=== PATIENT | male | born 1970 | race Caucasian/White ===

== ENCOUNTER → 2017-04-23 11:32 | Outpatient (CLI) | payer BC, SELFPAY ==
[2017-04-23 15:01] LABS: ALB/GLOB Ratio 1.1 RATIO (0.9-2.4); AST(SGOT) 25 U/L (15-37); Alanine Aminotransfer ALT/SGPT 50 U/L (16-61); Albumin, Serum 3.9 g/dL (3.2-5.0); Alkaline Phosphatase 89 U/L (45-117); Anion Gap 8 (5-15); BUN 12 mg/dL (7-18); Calcium,Total 8.7 mg/dL (8.5-10.1); Chloride 104 mmol/L (98-107); Cholesterol 225 mg/dL (200); EST Glomerular Filtration Rate 86 mL/min (>60); Est Glom Filt Rate - Afr Amer 104 mL/min (>60); Globulin 3.4 g/dL (2.2-4.2); Glucose 81 mg/dL (74-106); High Density Lipoprotein 47 mg/dL; Potassium 4.1 mmol/L (3.5-5.1); Protein, Total 7.3 g/dL (6.4-8.2); Sodium Level 140 mmol/L (136-145); Triglycerides 106 mg/dL; Very Low Density Lipoprotein 21 mg/dL (5-40)
== END ==
PROVIDERS: Family Provider Family Medicine; PCP Family Medicine; Visit Provider Family Medicine
DX: E34.9 Endocrine disorder, unspecified (principal)
CPT/HCPCS: 36415; 80053; 80061; 84403

== ENCOUNTER → 2017-05-02 15:24 | Outpatient (CLI) | payer OTHER, SELFPAY ==
--- NOTE | 2017-05-02 15:39 | EKG12_ITS ---
Test Reason : PREOP Blood Pressure : / mmHG Vent. Rate : 056 BPM Atrial Rate : 056 BPM P-R Int : 162 ms QRS Dur : 104 ms QT Int : 390 ms P-R-T Axes : 043 055 035 degrees QTc Int : 376 ms Sinus bradycardia Otherwise normal ECG Confirmed by EFREN SOLORZANO, DANIAL ([id number]), online editor SWEETIE ERICKSON ([id number]) on 05/03/2017 2:21:27 PM Referred By: Denton Trivedi Confirmed By:DANIAL SCHWARTZ MD
[2017-05-02 15:49] LABS: Hematocrit 43.3 % (40-54); Hemoglobin 15.1 g/dl (13.0-16.5); Mean Corp Hgb Conc 34.9 g/gl (32-36); Mean Corpuscular Hgb 28.8 pg (27.0-32.0); Mean Corpuscular Volume 82.5 fL (80-94); Mean Platelet Vol. 9.8 fl (6.2-12.0); Platelet Count 353 K/mm3 (150-450); RBC Distribution Width CV 12.8 % (11.6-14.6); RBC Distribution Width SD 38.7 fl (35.1-43.9); Red Blood Count 5.25 M/mm3 (4.6-6.2); White Blood Count 9.2 K/mm3 (4.4-11.0)
[2017-05-02 15:50] LABS: Scan Indicated on CBC? Y/N NO
[2017-05-02 16:10] LABS: Anion Gap 5 (5-15); BUN 15 mg/dL (7-18); BUN/Creat Ratio 14.3 RATIO (10-20); Calcium,Total 8.6 mg/dL (8.5-10.1); Chloride 106 mmol/L (98-107); Creatinine, Serum 1.05 mg/dL (0.70-1.30); EST Glomerular Filtration Rate 81 mL/min (>60); Est Glom Filt Rate - Afr Amer 98 mL/min (>60); Glucose 72 mg/dL (74-106); Potassium 4.1 mmol/L (3.5-5.1); Sodium Level 139 mmol/L (136-145)
== END ==
PROVIDERS: Family Provider Family Medicine; PCP Family Medicine; Visit Provider Physician Assistant
DX: Z01.818 Encounter for other preprocedural examination (principal)
CPT/HCPCS: 36415; 80048; 85027; 93005

== ENCOUNTER → 2018-06-16 15:21 | Outpatient (CLI) | payer BC, SELFPAY ==
[2018-06-16 17:56] LABS: Hematocrit 47.5 % (40-54); Mean Corp Hgb Conc 33.7 g/gl (32-36); Mean Corpuscular Hgb 27.6 pg (27.0-32.0); Mean Corpuscular Volume 81.9 fL (80-94); Mean Platelet Vol. 10.1 fl (6.2-12.0); Platelet Count 370 K/mm3 (150-450); RBC Distribution Width CV 13.8 % (11.6-14.6); RBC Distribution Width SD 40.9 fl (35.1-43.9); Scan Indicated on CBC? Y/N NO; White Blood Count 9.7 K/mm3 (4.4-11.0)
[2018-06-16 18:28] LABS: ALB/GLOB Ratio 1.3 RATIO (0.9-2.4); AST(SGOT) 24 U/L (15-37); Alanine Aminotransfer ALT/SGPT 54 U/L (16-61); Albumin, Serum 3.9 g/dL (3.2-5.0); Alkaline Phosphatase 95 U/L (45-117); Anion Gap 10 (5-15); BUN 18 mg/dL (7-18); BUN/Creat Ratio 14.5 RATIO (10-20); Calcium,Total 9.5 mg/dL (8.5-10.1); Chloride 107 mmol/L (98-107); Creatinine, Serum 1.24 mg/dL (0.70-1.30); EST Glomerular Filtration Rate 66 mL/min (>60); Est Glom Filt Rate - Afr Amer 80 mL/min (>60); Globulin 3.1 g/dL (2.2-4.2); Glucose 78 mg/dL (74-106); Potassium 5.2 mmol/L (3.5-5.1); Sodium Level 141 mmol/L (136-145)
[2018-06-16 19:45] LABS: Vitamin D,25 Hydroxy 15.4 ng/mL (29.95-100.01)
== END ==
PROVIDERS: Family Provider Family Medicine; PCP Family Medicine; Referring Provider Family Medicine; Visit Provider Family Medicine
DX: E55.9 Vitamin D deficiency, unspecified (principal); E34.9 Endocrine disorder, unspecified
CPT/HCPCS: 36415; 80053; 82306; 84153; 84403; 85027

== ENCOUNTER → 2018-12-15 16:00 | Outpatient (CLI) | payer BC, SELFPAY ==
[2018-12-15 17:28] LABS: Hematocrit 46.9 % (40-54); Hemoglobin 15.7 g/dL (13.0-16.5); Mean Corp Hgb Conc 33.5 g/dL (32-36); Mean Corpuscular Hgb 28.3 pg (27.0-32.0); Mean Corpuscular Volume 84.5 fL (80-94); Mean Platelet Vol. 9.6 fl (6.2-12.0); Platelet Count 361 K/mm3 (150-450); RBC Distribution Width CV 12.1 % (11.6-14.6); Red Blood Count 5.55 M/mm3 (4.6-6.2); White Blood Count 9.9 K/mm3 (4.4-11.0)
[2018-12-15 17:55] LABS: Vitamin D,25 Hydroxy 38.1 ng/mL (29.95-100.01)
[2018-12-15 17:56] LABS: AST(SGOT) 18 U/L (15-37); Alanine Aminotransfer ALT/SGPT 42 U/L (16-61); Albumin, Serum 3.8 g/dL (3.2-5.0); Alkaline Phosphatase 86 U/L (45-117); Anion Gap 7 (5-15); BUN 13 mg/dL (7-18); BUN/Creat Ratio 11.9 RATIO (10-20); Calcium,Total 9.1 mg/dL (8.5-10.1); Chloride 104 mmol/L (98-107); Cholesterol 256 mg/dL (200); Creatinine, Serum 1.09 mg/dL (0.70-1.30); EST Glomerular Filtration Rate 77 mL/min (>60); Est Glom Filt Rate - Afr Amer 93 mL/min (>60); Globulin 3.7 g/dL (2.2-4.2); Glucose 75 mg/dL (74-106); High Density Lipoprotein 40 mg/dL; PSA,Total - Annual Screen 0.85 ng/mL (0.00-4.00); Potassium 4.1 mmol/L (3.5-5.1); Protein, Total 7.5 g/dL (6.4-8.2); Sodium Level 140 mmol/L (136-145); Triglycerides 194 mg/dL; Very Low Density Lipoprotein 39 mg/dL (5-40)
== END ==
PROVIDERS: Family Provider Family Medicine; PCP Family Medicine; Visit Provider Family Medicine
DX: R79.89 Other specified abnormal findings of blood chemistry (principal); E34.9 Endocrine disorder, unspecified
CPT/HCPCS: 36415; 80053; 80061; 82306; 84153; 85027; G0103

== ENCOUNTER 2020-05-20 07:00 | Outpatient (RCR) | payer OTHER, BC, SELFPAY ==
--- NOTE | 2020-03-21 08:42 | HP.PTEVAL_ITS ---
Patient's Visit Information ROSA ANDREW is a 49 year old M referred to Physical Therapy by Out of Town Doctor with a diagnosis of R shoulder. Date of Evaluation: 03/21/20 Physical Therapist: Anastacia Donovan DPT - Visit Plan Frequency: 3-5x/week Duration: 6 Weeks Plan: work conditioning: improve R shoulder strength and ROM in order to return to work- pulling, lifting, pushing, above head movement (50-100lbs). IE: first week 3x/week 90minutes, second week 3x/week, third/fourth week 4x/week, fifth/sixth week 5x/week- 2 hour sessions for work conditioning. FCE at end - Subjective Pt presents with R shoulder injury 09/16/15 started at work-20ft piece of pipe and mauvered through hallway and boss tried to help lift pipe and arm ER and felt a pop and went to the [employer]. Had MRI. 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 R hand dominate. pain: little bit, weather does affect it 07/21. worst: reaching behind back, abd/ext or move too fast any direction 09/20. better: 2-04/20, in sling position with pillow under arm. sleep: cannot lay on R side too much, is a side sleeper/stomach, sometimes will wake up. at night. location and description of pain: sharp in the anterior shoulder. radiating//numbness/tingling: can go back down arm to eblow but not past elbow, does have some tingling in R hand and pt reports it gets colder compared to other hand. blurred vision, headache/dizzin es: denies. neck pain: normally has it - goes to chiropractor once a week and that helps it (posterior neck). meds: tylenol. 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 last PT in 01/30- trying to keep ROM, not as much strengthenig, is still doing exerices currently- [facility]- in [place], [place] (has is own place)- [facility]. Pt would like to get back to workout routine, and working,l rocky to [employer] and [employer], lives with . - Objective Posture: FH, RS, cannot maintian with cues. palption: no tenderness throughout the shoulder. Gait: decreased arm swing and trunk rotation- carrying water bottle in left hand. ROM: finger dexterity/wrist: WFL, elbow flex 135, ext WFL, shoulder in supine: flex 170 (in seated 160), abd 80 (80 degrees in sitting), ER 19. 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 Goal Time Frame: 4-6 Weeks Goal 3:: Patient will demonstrate ability to lift 50lb box floor to waist x20 without pain in order promote work related tasks. Goal Time Frame: 4-6 Weeks Goal 4:: Patient will demonstrate ability to lift 50lb box waist to overhead x20 without pain in order promote work related tasks. Goal Time Frame: 4-6 Weeks - Rehabilitation Potential Physical Therapy Diagnosis: Pt presents with decreased ROM, strength, poor posture, and decreased ability to perform work related activities. Rehabilitation Potential: Good - Anticipated Interventions Patient/Client Instruction: Educate patient on: Plan of Care, Benefits of Fitness Program For the Purpose of:: To improve muscle performance and motor function Therapeutic Exercise to Include: Strength training, Power training, Endurance training, Coordination, Body mechanics, Postural training, Flexibilty training, Passive ROM, Active ROM, Dynamic Lumbar Stabilization, Scapular Strength/Stabilization For the Purpose of:: To increase tolerance to activity/condition/position Functional Training to Include: Functional work training For the Purpose of:: To improve muscle performance and motor function, To increase tolerance to activity/condition/position Cryotherapy (ice pack, ice massage): Yes Thermo therapy (hot pack): Yes Ultrasound (thermal/non thermal): No Thank you for the opportunity to evaluate your patient. For Medicare and Medicare HMO plans, please review the plan of care and approve it. It will need to be FAXED BACK to us at [phone] for Medicare purposes. For Medicare only, by signing this I certify the plan of care. Please let me know if there are questions or concerns regarding this plan of care. Physician Signature: Date:
--- NOTE | 2020-05-05 11:55 | HP.PTREVAL_ITS ---
Out of Town Doctor, It has been my pleasure to treat ROSA ANDREW over the last 20 visits for R shoulder. Please see the progress note below for an update on the physical therapy plan of care! Subjective: Patient reports that he is a lot better than when he started work conditioning. He has some concerns about going back to the job he was doing before. He was lifting boxes overhead up to 75#. 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 Objective/Function: Posture: good throughout treatment session. palption: no tenderness throughout the shoulder. Gait: good arm swing and trunk rotation- no deviation noted ROM: finger dexterity/wrist: WFL, elbow: WFL, shoulder in standing: flex 175 degrees, abd 100 degrees, ER 30. IR: to belt line strength: elbow: 4+/5 shoulder: flex 4+/5, abd 5/5 ext 5/5, IR 4+/5, ER 4/5. Box floor to waist: #50 x 20 without stopping, Box waist to overhead- 50# x 1 with sharp pain and SBA- #35 x2 Indep. Plan Plan: work conditioning: improve R shoulder strength and ROM in order to return to work- pulling, lifting, pushing, above head movement (50-100lbs). IE: first week 3x/week 90 minutes, second week 3x/week, third/fourth week 4x/week, fifth/sixth week 5x/week- 2 hour sessions for work conditioning. FCE at end. 05/05/2020: finish work conditioning and FCE Goals Goal 1:: Patient will perform I HEP and progression Goal Time Frame: 4-6 Weeks Goal Progress: Goal Met Goal 2:: Patient will maintain proper posture for an entire treatment session in order to improve body mechanics during functional activities. Goal Time Frame: 4-6 Weeks Goal Progress: Goal Met Goal 3:: Patient will demonstrate ability to lift 50lb box floor to waist x20 without pain in order promote work related tasks. Goal Time Frame: 4-6 Weeks Goal Progress: Goal Met Goal 4:: Patient will demonstrate ability to lift 50lb box waist to overhead x20 without pain in order promote work related tasks. Goal Time Frame: 4-6 Weeks Goal Progress: Progressing Anticipated Interventions Patient/Client Instruction: Educate patient on: Plan of Care, Benefits of Fitness Program For the Purpose of:: To improve muscle performance and motor function Therapeutic Exercise to Include: Strength training, Power training, Endurance training, Coordination, Body mechanics, Postural training, Flexibilty training, Passive ROM, Active ROM, Dynamic Lumbar Stabilization, Scapular Strength/Stabilization For the Purpose of:: To increase tolerance to activity/condition/position Functional Training to Include: Functional work training For the Purpose of:: To improve muscle performance and motor function, To increase tolerance to activity/condition/position Cryotherapy (ice pack, ice massage): Yes Thermo therapy (hot pack): Yes Ultrasound (thermal/non thermal): No Please do not hesitate to contact me at [phone] by phone or if you have questions or concerns regarding this new plan of care! Sincerely, Anastacia Donovan DPT
--- NOTE | 2020-05-20 09:02 | HP.PTDCSUM ---
It has been my pleasure to treat ROSA ANDREW referred by Out of Town Doctor, with the diagnosis of R shoulder for a total of 22 visit(s). Discharge Date: Please see the following information for a summary of their discharge status. Subjective: States FCE yesterday. Wants to use last therapy day to help transfer Kinesis ex's to indep on gym side. Also got to meet up with Randy and he was able to show him how to progress what he is currently doing. Pt states he's still not able to get the same sweat on his own that he gets in PT. R SH Pain Intensity (Out of 10): 0 % Improvement: 70 Objective/Function: Pt wanted one last session of work conditioning while still approved (ends this saturday). States these appts still feel great and more effective than working out on his own. Educated pt on how to advance himself and how to transition Kinesis exs to gym area. Goal 1:: Patient will perform I HEP and progression Goal Progress: Goal Met Goal 2:: Patient will maintain proper posture for an entire treatment session in order to improve body mechanics during functional activities. Goal Progress: Goal Met Goal 3:: Patient will demonstrate ability to lift 50lb box floor to waist x20 without pain in order promote work related tasks. Goal Progress: Goal Met Goal 4:: Patient will demonstrate ability to lift 50lb box waist to overhead x20 without pain in order promote work related tasks. Goal Progress: Progressing Plan: D/c from rehab at this time - end of C9 and had FCE yesterday. If there are questions or concerns regarding this patient's physical therapy, please feel free to call me at [phone]. Thank you for the referral of this patient. Sincerely, SIERRA MurrayT
--- NOTE | 2020-05-25 12:25 | HP.OTFCE_ITS ---
Floor (Occasional 1-33% of Day): 65# Floor (Frequent 34-66% of Day): 32# Floor (Constant 67-100% of Day): 13# Floor PDL: Medium Knee (Occasional 1-33% of Day): 65# Knee (Frequent 34-66% of Day): 32# Knee (Constant 67-100% of Day): 13# Knee PDL: Medium Waist (Occasional 1-33% of Day): 65# Waist (Frequent 34-66% of Day): 32# Waist (Constant 67-100% of Day): 13# Waist PDL: Medium Shoulder (Occasional 1-33% of Day): 40# Shoulder (Frequent 34-66% of Day): 20# Shoulder (Constant 67-100% of Day): 8# Shoulder PDL: Light-Medium Overhead PDL: No Ability Bending: Frequent Ability (34-66% of day) Squatting: Frequent Ability (34-66% of day) Kneeling: Occasional Ability (1-33% of day) Comments: with external support Reaching out: Frequent Ability (34-66% of day) Reaching up: Occasional Ability (1-33% of day) Sitting: Frequent Ability (34-66% of day) Walking: Frequent Ability (34-66% of day) Standing: Frequent Ability (34-66% of day) Duration Sedentary Sedentary Light Light Light Medium Medium Medium Heavy Very Heavy Heavy Occasional (0-33% of day) Frequent (34-66% of day) Constant (67-100% of day) 10 # Negligible Negligible 15 # 8 # Negligible 20 # 10# Negli. 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 pt went to [facility] it was found pt had a labrum tear and pt underwent sx, then PT. during PT pt tore RT and Dr. Singletary repaired that for pt. went through PT again for RC repair and tore it again. Dr. Singletary was unable to repair- pt was referred to a [facility] shoulder specialist ( hector) pt did undergo a scraping but this surgeon was unable to help. pt was seen by Dr. Torres but was referred to Dr. Mock and pt had a reverse shoulder replacement- pt is on currently on a 25# lift restriction. pt uses smokeless tobacco chews 1/2 can a day. Per nursing pt can progress with strengthening as tolerated and per nursing has no wt. restriction. Diagnoses: High cholesteral Symptoms: pt states he does get right shoulder sharp pain at times. can not make fast movements (as in reaching for a falling objects) or pulling a journeyman carpenter. weakness Pain: right shoulder 06/20 pt states he did take some tylonal Work History: pt states he has worked at [employer] for less than a year. 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 Behavioral: Pt was cooperative throughout assessment ADLS: Pt lives in a one-story home with one entry step- lives with . states he has walk in shower and tub shower combo- pt does not use ad. eq. for bathing or dressing- pt states does assist with washing his back. Pt does all the yard care, has riding journeyman carpenter. pt drives ind. pt is ind. with cooking and cleaning. ROM: ROM: finger dexterity/wrist: WFL, elbow: WFL, shoulder in standing: flex 175 degrees, abd 100 degrees, ER 30. IR: to belt line. ROM is WFL Strength: strength: elbow: 4+/5 shoulder: flex 4+/5, abd 5/5 ext 5/5, IR 4+/5, ER 4/5. left UE 5/5. LE MMT 5/5. pt demo functional strength Right Chief Librarian Work With Blind Strength Average: 81.66 Right Chief Librarian Work With Blind Strength Percentile: 5.7% Left Chief Librarian Work With Blind Strength Average: 140.00 Left Chief Librarian Work With Blind Strength Percentile: 95% Right Lateral Pinch Average: 13.33 Right Lateral Pinch Percentile: >10% Left Lateral Pinch Average: 19.33 Left Lateral Pinch Percentile: 25% Right Tripod Pinch Average: 14.00 Right Tripod Pinch Percentile: 10# Left Tripod Pinch Average: 18.66 Left Tripod Pinch Percentile: 50% Sensation: deneis Fine Motor: deneis Balance: pt demo Normal balance -no loss of balance noted during assessment Bending: pt completed 3x 10x and 10 x rapidly. pt can bend forward on a frequent ability. Squatting: pt completed 3x 10x 10x rapidly pt c/o bilateral knee pian 06/20. pt can squat on a frequent ability Kneeling: pt demo the ability to kneel three times pt completed kneeling 10x with exteranl support. pt unable to kneel 10x rapidly due to bilateral knee pain 06/20 . pt can kneel on an occastional ability Reaching out/up: pt demo the ability to reach out three times, ten times and ten times rapidly. pt can reach out on a frequent ability. pt demo the ability to reach up three times, ten times and 3x rapidly, pt can rech up on an occasional ability . Walking: pt demo the ability to ambulate 15 min - pt can ambulate on a frequent ability Standing: pt demo the ability to stand for 15 min with no expressed or apparent discomfort pt can stand on a frequent ability Sitting: pt demo the ability to sit for 40 min with no expressed or apparent discomfort. Climbing Stairs: pt ascended and descended ten steps with a reciprocal gait pattern no use of rails with good ability Floor Lift: Pt demo the ability to lift 65# maximally from this level with good lifting mechanics. Knee Lift: Pt demo the ability to lift 65# maximally from this level with good lifting mechanics. Waist Lift: Pt demo the ability to lift 65# maximally from this level with good lifting mechanics. Shoulder Lift: pt demo the ability to lift 40# maximally from this level with good lifting mechanics. Overhead Lift: unable Carrying: pt demo the ability to carry 40# for 40 feet with good ability. Comments: pt demo good lifting mechanics during lift tasks.
--- NOTE | 2020-05-25 12:25 | HP.OTFCE.D ---
FCE D/C Summary - Discharge ROSA ANDREW was seen for a one time visit for an FCE on 05/19/20 and is discharged.
== END 2020-05-20 10:24 | disposition home or self-care (01) ==
LOC: PT 07:00
PROVIDERS: PCP Family Medicine
DX: S43.401D Unspecified sprain of right shoulder joint, subsequent encounter (principal); S43.431D Superior glenoid labrum lesion of right shoulder, subsequent encounter
CPT/HCPCS: 97110; 97162; 97164; 97750

== ENCOUNTER → 2020-11-03 16:54 | Outpatient (CLI) | payer BC, SELFPAY ==
[2020-11-03 18:00] LABS: ALB/GLOB Ratio 1.1 RATIO (0.9-2.4); AST(SGOT) 39 U/L (15-37); Alanine Aminotransfer ALT/SGPT 51 U/L (16-61); Albumin, Serum 3.9 g/dL (3.2-5.0); Alkaline Phosphatase 102 U/L (45-117); Anion Gap 5 (5-15); BUN 12 mg/dL (7-18); Calcium,Total 9.2 mg/dL (8.5-10.1); Chloride 105 mmol/L (98-107); Cholesterol 166 mg/dL (200); Creatinine, Serum 0.86 mg/dL (0.70-1.30); EST Glomerular Filtration Rate 101 mL/min (>60); Est Glom Filt Rate - Afr Amer 122 mL/min (>60); Globulin 3.5 g/dL (2.2-4.2); Glucose 71 mg/dL (74-106); High Density Lipoprotein 47 mg/dL; PSA,Total - Annual Screen 0.92 ng/mL (0.00-4.00); Potassium 3.7 mmol/L (3.5-5.1); Protein, Total 7.4 g/dL (6.4-8.2); Sodium Level 136 mmol/L (136-145); Triglycerides 100 mg/dL; Very Low Density Lipoprotein 20 mg/dL (5-40)
[2020-11-03 18:17] LABS: Vitamin D,25 Hydroxy 54.7 ng/mL
== END ==
PROVIDERS: PCP Family Medicine; Referring Provider Family Medicine; Visit Provider Family Medicine
DX: E78.5 Hyperlipidemia, unspecified (principal); E55.9 Vitamin D deficiency, unspecified; Z12.5 Encounter for screening for malignant neoplasm of prostate
CPT/HCPCS: 36415; 80053; 80061; 82306; 84153; G0103

== ENCOUNTER 2020-11-25 10:16 | Emergency (ER) | payer OTHER, BC, SELFPAY ==
[2020-11-25 10:17] VITALS: PULSE 61; RESP 20; TEMP 36.6; O2SAT 98; BMI 40.4
--- NOTE | 2020-11-25 11:09 | RAD_ITS ---
STUDY: X-RAY - RIGHT FEMUR REASON FOR STUDY: Male, 50 years old. injury TECHNIQUE: 4 view(s) of the femur. COMPARISON: None. FINDINGS: Normal visualized femur. Normal visualized soft tissue structure. RAD/Femur Min 2 Views IMPRESSION: Normal x-ray examination of the right femur. Electronically Signed: Philip Humphreys MD at 12:43 EDT Tel , Service support ,
--- NOTE | 2020-11-25 11:09 | RAD_ITS ---
STUDY: X-RAY - RIGHT TIBIA AND FIBULA REASON FOR EXAM: Male, 50 years old. Injury TECHNIQUE: 3 view(s) of the tibia and fibula were obtained. COMPARISON: None. FINDINGS: There is no evidence of fracture or dislocation. There are no significant degenerative changes. There are no radiodense foreign bodies. RAD/Tibia & Fibula 2 Views IMPRESSION: No fracture or dislocation. Electronically Signed: Philip Humphreys MD at 12:46 EDT Tel , Service support ,
--- NOTE | 2020-11-25 11:16 | ED.VIS.LOWEX ---
HPI History of Present Illness Chief Complaint: Lower Extremity Injury Informant: patient and EMS Occured/Mechanism Mechanism/Context: Yes blunt trauma and Yes work related Comment: Large PVC pole hit medial right knee with force Onset/Context/Timing Onset: Today (Just prior to arrival) Context: Sudden Onset Timing: Continuous Quality of Pain: Aching Location: RLE Current Severity: Mild Maximum Severity: Severe Worsened by: Movement or trying to bear weight Relieved by: Fentanyl given by EMS Associated Symptoms Associated Symptoms: Positive for Parasthesia (Developed gradually during transport after splinting by EMS, unable to feel anything below the knee); Negative for Weakness and Loss of Funtion Narrative Narrative: Patient states he was at work, he was helping to put together a feed hopper when they backed to [employer]ts away from each other involved in the construction, and suddenly the Hopper blew open, and he was struck by a portion of it in the right lower leg/knee. He states when he tried to walk it felt like it buckled and he was unable, and he was having severe pain. EMS splinted him. He states he had good sensation prior to that, and in route during the ambulance ride, his right lower leg went numb from the knee down. [facility] Medical History Arthropathy of left knee Hyperlipidemia Home Medications atorvastatin 20 mg PO DAILY 11/25/20 [History Last Taken Unknown] Allergy/AdvReac Type Severity Reaction Status Date / Time No Known Allergies Allergy Verified 11/25/20 10:22 Social History Smoking Status: Never smoker ROS ROS ED Constitutional Constitutional ED: Denies chills or fever(s) Musculoskeletal Musculoskeletal: Reports extremity pain; Denies neck pain Integumentary Denies Abrasions, rash or wounds Neurologic Neurologic: Reports numbness; Denies weakness EXAM Physical Exam Const Vital Signs: 11/25/20 10:17 11/25/20 11:35 11/25/20 13:00 Temperature 97.9 F Temperature Source Oral Pulse Rate 61 60 65 Respiratory Rate 20 H Blood Pressure 132/112 H Blood Pressure Mean 118 Pulse Ox 98 96 Oxygen Delivery Method Room Air Room Air Positive well nourished and well developed General Appearance ED: well developed and NAD Neck full ROM and supple Back/Spine normal ROM and normal to inspection Extremity normal to inspection Extremity Narrative: No deformities of the right lower extremity. Tender throughout the distal medial right thigh, mostly at the medial aspect of the right knee diffusely, and the proximal right tibia. Skin intact, there is barely a sign of erythema where the patient states he feels like it struck him. All compartments are soft and nondistended. Very limited range of motion of the knee he is holding in about 15 degrees of flexion, due to pain. Bounding 2+/4 right dorsalis pedis pulse and brisk cap refill distal toes. Patient has no hip pain, I am able to range him a little without pain, but limited exam due to pain in the right knee. Neuro oriented x3 and no focal motor deficits Neuro Narrative: Able to wiggle right toes and foot. Sensation: patient able to feel pressure only with squeezing his toes firmly. No sensation to pinpoint. Sensorium / Orientation: alert Psych mental status grossly normal and thought process normal Skin no wounds Rashes: no rashes MDM MDM MDM Narrative Medical decision making narrative: The patient's right lower extremity was splinted, and his pants were cut and tucked beneath him fairly tightly, so when I loosen these and collapsed the splint he was in, given that he had great perfusion distally, on reevaluation his numbness totally resolved gradually, likely due to a neuropraxia from his pants being wrapped around his thigh very tightly. After reviewing two view x-ray of the right femur and two view x-ray of the tib-fib and personally interpreting them as negative, I reevaluated the patient, knowing I could manipulate his knee better without manipulating a fracture. He does have good range of motion although limited at flexion, he is able to extend fully and the mechanism is intact. His ligaments are intact, stable with minimal discomfort with stressing them, and very short endpoints including ACL and PCL. Given this, I do not think he needs knee immobilizer, he is not able to walk on it due to pain. He is given Rob wrap, crutches, and outpatient follow-up with [facility] for now, as I see no reason for him to see orthopedics at this time Radiography Diagnostic Testing: Clinical Impression(s) from Imaging Studies Femur X-Ray 11/25/20 11:09 IMPRESSION: Normal x-ray examination of the right femur. Electronically Signed: Philip Humphreys MD at 12:43 EDT Tel , Service support , Tibia/Fibula X-Ray 11/25/20 11:09 IMPRESSION: No fracture or dislocation. Electronically Signed: Philip Humphreys MD at 12:46 EDT Tel , Service support , Discharge Plan Triage Chief Complaint: Lower Extremity Injury ED Provider: Gerhard Rosario Dx/Rx/DC Orders Clinical Impression: Contusion of knee, right Instructions: ED Contusion, Lower Extremity Prescriptions: No Action atorvastatin 20 mg tablet 20 mg PO DAILY RF: 0 Stand Alone Forms: Work Status Form Primary Care Provider: Allen Pepe Referrals: [facility] [GROUP OF PHYSICIANS] - 3-5 Days Allen Pepe MD [Primary Care Provider] - Disposition Disposition: Home, Self Care
[2020-11-25 11:35] VITALS: BP 132/112; PULSE 60; O2SAT 96
[2020-11-25 13:00] VITALS: PULSE 65
[2020-11-25] MEDS: HYDROcodone Bitartrate/Apap 5/325 Tablet PO (13:38)
[2020-11-25 13:40] VITALS: BP 160/97; PULSE 66; RESP 16; O2SAT 99
== END 2020-11-25 13:55 | disposition home or self-care (01) ==
PROVIDERS: Emergency Provider Emergency Medicine; PCP Family Medicine
DX: S80.01XA Contusion of right knee, initial encounter (principal); W22.8XXA Striking against or struck by other objects, initial encounter; Y93.89 Activity, other specified; Y92.9 Unspecified place or not applicable; Y99.0 Civilian activity done for income or pay
CPT/HCPCS: 73552; 73590; 99285

== ENCOUNTER → 2020-12-23 16:02 | Outpatient (CLI) | payer OTHER, BC, SELFPAY ==
--- NOTE | 2020-12-23 16:25 | MRI_ITS ---
STUDY: MRI RIGHT KNEE REASON FOR EXAM: Male, 50 years old. Knee injury, knee pain. TECHNIQUE: Standardized fat and water weighted pulse sequences were obtained in all 3 orthogonal planes. COMPARISON: None. FINDINGS: Normal medial meniscus. There is diffuse, less than 50% thickness articular cartilage loss of the medial femorotibial compartment. Normal medial femoral condyle and tibial plateau. Normal medial collateral ligamentous complex (MCL). Normal distal semimembranosus, gracilis and semitendinosus tendons. Normal lateral meniscus. There is diffuse, less than 50% thickness articular cartilage loss of the lateral femorotibial compartment. Normal lateral femoral condyle and tibial plateau. Normal proximal tibiofibular articulation. Normal lateral collateral (fibular) ligament. Normal popliteus tendon. Normal biceps femoris tendon. Normal anterior cruciate ligament (ACL). Normal posterior cruciate ligament (PCL). Shallow trochlear groove with lateral subluxation of patella and edema superolateral Hoffa''s fat pad consistent with patellofemoral maltracking. 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 Normal medial and lateral patellar retinaculum. Normal quadriceps tendon. Normal patellar tendon. Normal Hoffa''s fat pad. There is a small volume joint effusion. The soft tissues are unremarkable. The otherwise visualized osseous structures are unremarkable. MRI/Lower Ext Joint Only (Routine) IMPRESSION: Mild tricompartmental arthrosis. Electronically Signed: Neftali Villa MD at 8:39 EST Tel , Service support ,
== END ==
PROVIDERS: PCP Family Medicine; Visit Provider Physician Assistant Surgical
DX: S80.01XA Contusion of right knee, initial encounter (principal); X58.XXXA Exposure to other specified factors, initial encounter; M17.11 Unilateral primary osteoarthritis, right knee
CPT/HCPCS: 73721

== ENCOUNTER 2021-05-16 15:23 | Outpatient (CLI) | payer BC, SELFPAY | END 2021-05-16 23:59 | disposition home or self-care (01) | LOC: LABSPEC 15:27 | PROVIDERS: PCP Family Medicine; Referring Provider Family Medicine; Visit Provider Family Medicine | DX: B34.9 Viral infection, unspecified (principal); Z20.822 Contact with and (suspected) exposure to COVID-19 | CPT/HCPCS: 87635; U0003; U0005 ==

== ENCOUNTER → 2023-03-20 | Outpatient (CLI) | payer BC, SELFPAY ==
[2023-03-20 17:31] LABS: Hematocrit 42.3 % (40-54); Hemoglobin 13.7 g/dL (13.0-16.5); Mean Corp Hgb Conc 32.4 g/dL (32-36); Mean Corpuscular Hgb 27.4 pg (27.0-32.0); Mean Corpuscular Volume 84.6 fL (80-94); Mean Platelet Vol. 9.8 fl (6.2-12.0); Platelet Count 318 K/mm3 (150-450); RBC Distribution Width CV 13.2 % (11.6-14.6); RBC Distribution Width SD 40.4 fl (35.1-43.9)
[2023-03-20 17:54] LABS: Vitamin D,25 Hydroxy 31.6 ng/mL
[2023-03-20 17:58] LABS: Hemoglobin A1c 4.9 % (3.8-5.6)
[2023-03-20 18:10] LABS: AST(SGOT) 30 U/L (15-37); Alanine Aminotransfer ALT/SGPT 46 U/L (16-61); Albumin, Serum 3.7 g/dL (3.2-5.0); Alkaline Phosphatase 112 U/L (45-117); Anion Gap 2 (5-15); BUN 19 mg/dL (7-18); BUN/Creat Ratio 15.1 RATIO (10-20); Bilirubin, Direct 0.13 mg/dL (0.00-0.30); Calcium,Total 8.7 mg/dL (8.5-10.1); Chloride 108 mmol/L (98-107); Cholesterol 176 mg/dL (200); Creatinine, Serum 1.26 mg/dL (0.70-1.30); EST Glomerular Filtration Rate 64 mL/min (>60); Est Glom Filt Rate - Afr Amer 77 mL/min (>60); Globulin 3.2 g/dL (2.2-4.2); Glucose 95 mg/dL (74-106); High Density Lipoprotein 35 mg/dL; PSA,Total - Annual Screen 0.97 ng/mL (0.00-4.00); Potassium 3.9 mmol/L (3.5-5.1); Protein, Total 6.9 g/dL (6.4-8.2); Sodium Level 136 mmol/L (136-145); Triglycerides 90 mg/dL; Very Low Density Lipoprotein 18 mg/dL (5-40)
== END | disposition home or self-care (01) ==
LOC: MFPLAB 16:53
PROVIDERS: PCP Family Medicine; Visit Provider Family Medicine
DX: Z13.1 Encounter for screening for diabetes mellitus (principal); Z12.5 Encounter for screening for malignant neoplasm of prostate; Z13.220 Encounter for screening for lipoid disorders; E34.9 Endocrine disorder, unspecified; R79.89 Other specified abnormal findings of blood chemistry
CPT/HCPCS: 36415; 80048; 80061; 80076; 82306; 83036; 84153; 84403; 85027; G0103

== ENCOUNTER 2023-04-09 13:57 | Outpatient (RCR) | payer BC, SELFPAY ==
--- NOTE | 2023-04-11 13:03 | HP.FCE ---
Task Lift Floor (Occasional 1-33% of Day): 65# Floor (Frequent 34-66% of Day): 32.5# Floor (Constant 67-100% of Day): N/A Floor PDL: Medium Knee (Occasional 1-33% of Day): 65# Knee (Frequent 34-66% of Day): 32.5# Knee (Constant 67-100% of Day): N/A Knee PDL: Medium Waist (Occasional 1-33% of Day): 65# Waist (Frequent 34-66% of Day): 32.5# Waist (Constant 67-100% of Day): N/A Waist PDL: Medium Shoulder (Occasional 1-33% of Day): 40# Shoulder (Frequent 34-66% of Day): 20# Shoulder (Constant 67-100% of Day): N/A Shoulder PDL: Light-Medium Overhead (Occasional 1-33% of Day): 25# Overhead (Frequent 34-66% of Day): 12.5 Overhead (Constant 67-100% of Day): N/A Overhead PDL: Light Comments: Medium physical demand level for lifting at floor, knee and waist levels Light-medium physical demand level for lifting at shoulder level Light physical demand level for lifting overhead Work Activity/Posture Bending: Occasional Ability (1-33% of day) Comments: With use of external support Squatting: Occasional Ability (1-33% of day) Comments: With use of external support Kneeling: Occasional Ability (1-33% of day) Comments: With use of external support Reaching out: Frequent Ability (34-66% of day) Reaching up: Frequent Ability (34-66% of day) Sitting: Occasional Ability (1-33% of day) Walking: Frequent Ability (34-66% of day) Standing: Frequent Ability (34-66% of day) Reference Reference: Duration Sedentary Sedentary Light Light Light Medium Medium Medium Heavy Very Heavy Heavy Occasional (0-33% of day) Frequent (34-66% of day) Constant (67-100% of day) 10 # Negligible Negligible 15 # 8 # Negligible 20 # 10# Negli. 35 # 18 # 7 # 50 # 25 # 10 # 75 # 100 # >100 # 38 # 50 # >50 # 15 # 20 # >20 # Patient Information Height: 5 ft 10 in Weight:: 110.223 kg Hand Dominance: Right Medical History Medical History Including Restrictions: Injured during war by falling into sand on back, sometime between [id number], went to [facility] and was given anti-inflammatories at time of injury Has increased in pain and limitations as time has continued Has participated in PT three weeks to a month with last visit about 15 years ago (2008) Currently sees chiropractor 1x/wk since 2008 Pt reports no restrictions with work at this time. 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 Behavioral Behavioral: Pt cooperative with assessment ADLS ADLS: Lives in ranch with . Pt reports he is independent with ADLs, shares cooking, cleaning, yardwork with Laundry on main level Pt reports both walk-in shower and tub with typical use of walk-in. Declines use of ad. eq. for ADLs Physical Examination Physical Examination: Resting heart rate 55, max 99 during assessment ROM: Forward trunk flexion: 70* before pain Trunk extension: 20* before pain R lateral flex: WFL L lateral flex: 15* limited by pain R lateral rotation: WFL L lateral rotation: WFL R seated leg lift: WFL L seated leg lift: WFL but causes radiating pain past knee 4/10 Strength: Fet2 Shoulder Flex: R 19.2# L 22.9# Pain at 5/10 bilat Shoulder Ext: R 23# L 21.3# Biceps: R 22.7# with 3/10 pain L 22.5# Triceps: R 26.4# L 22.1# MMT Hip Flex: R 5/5 L 5/5 5/10 pain Quad: R 5/5 L 5/5 Hamstrings: R 5/5 L 5/5 5/10 pain bilat Plantar: R 5/5 L 5/5 Dorsi: R 5/5 L 5/5 Greater Toe: R 5/5 L 5/5 Right [employer] Strength Average: 116.66 Right [employer] Strength Percentile: 45.0 Left [employer] Strength Average: 125.00 Left [employer] Strength Percentile: 65.9 Right Lateral Pinch Average: 21.66 Right Lateral Pinch Percentile: 50.0 Left Lateral Pinch Average: 19.33 Left Lateral Pinch Percentile: 50.0 Right Tripod Pinch Average: 18.66 Right Tripod Pinch Percentile: 50.0 Left Tripod Pinch Average: 19.33 Left Tripod Pinch Percentile: 75.0 Sensation: Numbness after prolonged walking/standing down legs Numbness/tingling after prolonged sitting/sleeping Fine Motor: Denies Balance: Total reach of 13 with pain on ascent 09/20 (pulse 70) Interpretation: A score of 6 or less indicates a significant increased risk for falls. A score between 6-10 inches indicates a moderate risk for falls. Non Material Handling Activities Bending: Bending forward 3/07/21 pain did not go full range, required external support at table and through thigh. 10 with support at thigh to achieve full stand, pain on return 08/20 (pulse 73) 10/10 quickly with diminished fluid movement pattern, pain on return 8/10 (pulse 83) Noted increased time and compensation with activity. Squattin/3, on return 5/10 pain 10/10, on return 5/10 pain (pulse 88) 9/10, unable to complete last squat, required assist at table to return to standing, 7/10 pain Kneelin/3, 5/10 pain, compensation with hand at L thigh on return 10, 5/10 pain, compensation with hand at L thigh on return (pulse 81) 10/10, numbness in L leg after kneeling (pulse 88) Reaching out/up: Reaching out 3/3 1010 10/10 quickly Reaching up 3/3 10/10 (pulse 72) 10/10 quickly, 3/10 pain (pulse 86) Walking: Pt able to ambulate 10 minutes with no rest breaks. Pt reported tingling down L leg as continuous walking progressed. Pt did prefer walking after sitting, bending, squatting, and kneeling activities to ease tingling/numbness that presented with activities. Ambulates with increased base of support with slight retroversion of feet. Slight forward leaning with ambulation. Standing: Pt preferred standing during session including pacing/shifting weight between activities with over an hour of combined standing before walking ax. Pt reported walking assisted in stiffness, tingling from seated position. Sitting: Pt demonstrated relatively comfortable sitting for 35 minutes before standing due to tingling and numbness down. Able to participate in seated activities, but required breaks to stand throughout. Climbing Stairs: 10/10 ascending and descending unassisted by hand rail with 4/10 pain (pulse 85) Dynamic Occasional Lifting Capacity Floor Lift: Pt demo the ability to lift 65# maximally from floor level with good lifting mechanics and increased base of support. Knee Lift: Pt demo the ability to lift 65# maximally from knee level with good lifting mechanics and increased base of support. Waist Lift: Pt demo the ability to lift 65# maximally from waist level with good lifting mechanics and increased base of support. Shoulder Lift: Pt demo the ability to lift 40# maximally from shoulder level with fair lifting mechanics and increased base of support. Pt reported 5/10 pain (pulse 72) Overhead Lift: Pt demo the ability to lift 25# maximally overhead with good lifting mechanics and increased base of support. Carryin# + 15# box for 20 feet- set down wt and carried back- noted slight retro lean to off set wt with increased base of support. Pt reported 5/10 pain (pulse 99). Comments: Pt reports 5/10 pain with shoulder height and carry Pulse
--- NOTE | 2023-04-11 13:04 | HP.OTFCE.D ---
FCE D/C Summary Discharge text: ROSA ANDREW was seen for a one time visit for an FCE on 04/09/23 and is discharged.
== END 2023-04-09 19:00 | disposition home or self-care (01) ==
LOC: OT 13:57
PROVIDERS: PCP Family Medicine; Referring Provider Family Medicine; Visit Provider Family Medicine
DX: M48.061 Spinal stenosis, lumbar region without neurogenic claudication (principal); M50.30 Other cervical disc degeneration, unspecified cervical region; M51.36 Other intervertebral disc degeneration, lumbar region
CPT/HCPCS: 97750